=== PATIENT | male | born 1940 | race Hispanic/Latino ===

== ENCOUNTER 2016-11-18 09:36 | Emergency (ER) | payer MEDICARE, MEDICAID ==
[2016-11-18 09:36] VITALS: BMI 25.8
[2016-11-18 11:46] VITALS: BP 121/72; PULSE 49; RESP 12; TEMP 97.6; O2SAT 100
== END 2016-11-18 12:31 | disposition home or self-care (01) ==
LOC: C.ER 09:36
DX: N40.0 Benign prostatic hyperplasia without lower urinary tract symptoms (principal)